=== PATIENT | male | born 1955 | race Caucasian/White ===

== ENCOUNTER 2022-11-07 22:07 | Emergency (ER) | payer OTHER ==
[2022-11-07 22:17] VITALS: TEMP 97.6; BMI 33.4
[2022-11-07] MEDS ORDERED: NITROGLYCERIN SUBLINGUAL 1/150 0.4 MG TAB SL ONE (22:26)
[2022-11-07] MEDS ORDERED: NITROGLYCERIN SUBLINGUAL 1/150 0.4 MG TAB ONE (22:27)
[2022-11-07] MEDS ORDERED: ACETAMINOPHEN 325 MG TABLET (FP) PO ONE (22:28)
[2022-11-07] MEDS ORDERED: ATORVASTATIN CA 80 MG TABLET (FP) PO ONE (22:28)
[2022-11-07] MEDS ORDERED: ATORVASTATIN CA 80 MG TABLET (FP) ONE (22:29)
[2022-11-07] MEDS ORDERED: ACETAMINOPHEN 325 MG TABLET (FP) ONE (22:30)
[2022-11-07 22:31] LABS: BASO % 0.4 % (0-2.0); HEMATOCRIT 43.8 % (35.4-49); HEMOGLOBIN 14.8 GM/dL (11.7-16.9); LYMPH % 40.2 % (8-40); MCH 30.9 pg (25.7-33.7); MCHC 33.9 g/dl (32.0-35.9); MEAN CELL VOLUME 91.1 fl (80-96); MEAN PLT VOLUME 8.1 fl (7.5-11.1); MONO % 6.7 % (3.8-10.2); NEUT % 51.7 % (42.8-82.8); PLATELET COUNT 268 10^3/uL (134-434); RDW 14.7 % (11.9-15.9); WHITE BLOOD COUNT 9.7 K/mm3 (4.0-10.0)
[2022-11-07 22:38] LABS: INR 1.06 (0.83-1.09); PROTHROMBIN TIME (PATIENT) 12.3 SEC (9.7-13.0)
[2022-11-07 22:41] LABS: ACTIVATED PTT 29.1 SECONDS (25.2-36.5)
[2022-11-07] MEDS ORDERED: HEPARIN NA (PORCINE) 5,000 UNITS/ML 1ML VIAL IVPUSH PRN ×2 (22:47)
[2022-11-07 22:49] LABS: CHLORIDE 102 mmol/L (98-107); SODIUM 135 mmol/L (136-145)
[2022-11-07 22:51] LABS: ALBUMIN 3.5 g/dl (3.4-5.0); ANION GAP 7 MMOL/L (8-16); CALCIUM 8.9 mg/dL (8.5-10.1); CO2 26 mmol/L (21-32)
[2022-11-07 22:52] LABS: BLOOD UREA NITROGEN 13.3 mg/dL (7-18); GLUCOSE,RANDOM 400 mg/dL (74-106)
[2022-11-07 22:54] LABS: SGPT/ALT 42 U/L (13-61)
[2022-11-07 22:55] LABS: CREATININE 1.6 mg/dL (0.55-1.3); SGOT/AST 40 U/L (15-37)
[2022-11-07 22:56] LABS: BILIRUBIN,TOTAL 0.3 mg/dL (0.2-1); TOT PROT 7.3 g/dl (6.4-8.2)
[2022-11-07 22:57] LABS: ALK PHOS 79 U/L (45-117)
[2022-11-07] MEDS ORDERED: HEPARIN - 25,000 UNIT in SODIUM CHLORIDE 495 ML IV SCH (23:00)
[2022-11-07 23:09] LABS: VENOUS BASE EXCESS -0.7 mmol/L (-2-2); VENOUS O2 SATURATION 24.4 % (70-80); VENOUS PCO2 54.4 mmHg (38-52); VENOUS PH 7.307 (7.310-7.410)
[2022-11-07 23:30] VITALS: RESP 20
[2022-11-07 23:31] VITALS: PULSE 97
[2022-11-07 23:31] LABS: N-TERMINAL BNP 1004.9 pg/ml (5-125)
[2022-11-07 23:32] VITALS: BP 138/80
== END 2022-11-07 23:25 | disposition short-term general hospital (02) ==
LOC: JER 22:07
PROC: 3E033GC Introduction of Other Therapeutic Substance into Peripheral Vein, Percutaneous Approach (ICD-10-PCS; principal; 2022-11-07)
DX: I21.3 ST elevation (STEMI) myocardial infarction of unspecified site (principal)
CPT/HCPCS: 0241U-QW; 36415; 71045-TC-FY; 80053; 82803; 82962; 83735; 83880; 84484; 85025; 85610; 85730; 93005; 93010; 99291; J1644